=== PATIENT | female | born 1975 | race Two or more races ===

== ENCOUNTER → 2024-01-21 17:06 | Outpatient (REF) | payer OTHER, SELFPAY | LOC: RAD 17:06 | PROVIDERS: ATTENDING PHYSICIAN Internal Medicine Rheumatology; FAMILY PHYSICIAN Family Medicine | DX: D64.9 Anemia, unspecified (principal); I73.00 Raynaud's syndrome without gangrene; M25.50 Pain in unspecified joint; R06.02 Shortness of breath; R76.8 Other specified abnormal immunological findings in serum | CPT/HCPCS: 71046; 73120 ==

== ENCOUNTER → 2024-01-31 06:36 | Day surgery (SDC) | payer OTHER, SELFPAY | LOC: GI 06:36 | PROVIDERS: ATTENDING PHYSICIAN Internal Medicine | DX: R19.7 Diarrhea, unspecified (principal); K31.89 Other diseases of stomach and duodenum; D50.9 Iron deficiency anemia, unspecified | CPT/HCPCS: 45380; 43239; 88305; 88342 ==

== ENCOUNTER → 2024-04-13 12:54 | Outpatient (REF) | payer OTHER, SELFPAY | LOC: RSP 12:54 | PROVIDERS: ATTENDING PHYSICIAN Internal Medicine Critical Care Medicine; FAMILY PHYSICIAN Family Medicine | DX: J84.9 Interstitial pulmonary disease, unspecified (principal); R06.02 Shortness of breath | CPT/HCPCS: 94727; 94729; 71250; 94060; 94761 ==

== ENCOUNTER → 2024-08-18 13:27 | Outpatient (REF) | payer OTHER, SELFPAY | LOC: RAD 13:27 | PROVIDERS: ATTENDING PHYSICIAN Physician Assistant Medical; FAMILY PHYSICIAN Internal Medicine Critical Care Medicine | DX: R50.9 Fever, unspecified (principal); R68.89 Other general symptoms and signs | CPT/HCPCS: 71046 ==